=== PATIENT | female | born 1940 | race American Indian/Alaskan Native ===

== ENCOUNTER 2016-10-06 15:33 | Observation (INO) | payer OTHER ==
--- NOTE | 2016-10-06 16:26 | ED PDOC ---
Arrival/HPI - General Time Seen by Provider: 10/06/16 16:02 - History of Present Illness Narrative History of Present Illness (Text): 10/06/16 16:24 76 yo female, hx of htn, presents with high b/p and chest tightness. as per pt, noted her b/p to be elevated at home, and had "heaviness in her chest". states took her usual meds. reports systolic to be 180 at home. no fevers, no cough, no n/v/d, no urianry changes, Past Medical History - Provider Review Nursing Documentation Reviewed: Yes - Infectious Disease Hx of Infectious Diseases: None - Tetanus Immunization Tetanus Immunization: Unknown - Cardiac Hx Pacemaker: No - Pulmonary Other/Comment: SOB - Neurological Hx Paralysis: No - HEENT Hx HEENT Disorder: Yes Hx Cataracts: Yes (Both Eyes) - Endocrine/Metabolic Hx Diabetes Mellitus Type 2: Yes - Hematological/Oncological Hx Blood Transfusions: No Hx Blood Transfusion Reaction: No - Musculoskeletal/Rheumatological Hx Musculoskeletal Disorders: Yes - Gastrointestinal Hx Gastroesophageal Reflux: Yes Hx Gastrointestinal Ulcer: Yes - Genitourinary/Gynecological Hx Reproductive Disorders: No - Psychiatric Hx Emotional Abuse: No Hx Physical Abuse: No Hx Substance Use: No - Surgical History Hx Cardiac Catheterization: Yes Hx Coronary Stent: Yes Hx Open Heart Surgery: Yes - Anesthesia Hx Anesthesia Reactions: No Hx Malignant Hyperthermia: No - Suicidal Assessment Feels Threatened In Home Enviroment: No Family/Social History Family/Social History: Unknown Family HX Smoking Status: Never Smoked Hx Alcohol Use: No Hx Substance Use: No Hx Substance Use Treatment: No Allergies/Home Meds Allergies/Adverse Reactions: Allergies No Known Allergies Allergy (Verified 10/06/16 16:08) Home Medications: Home Meds Medication Instructions Recorded Confirmed Clonidine Hydrochloride [Clonidine 0.1 mg PO BID 09/23/11 02/05/15 HCl] Insulin Aspart, Recombinant 5 units SC ACL 09/23/11 02/05/15 [Novolog] Insulin Aspart, Recombinant 9 units SC ACD 09/23/11 02/05/15 [Novolog] Insulin Aspart, Recombinant 11 units SC ACB 09/23/11 02/05/15 [Novolog] Insulin Glargine,Hum.rec.anlog 30 units SC HS 09/23/11 02/05/15 [Lantus] Zolpidem Tartrate [Ambien] 5 mg PO HS PRN 06/05/12 10/19/15 Atorvastatin Calcium 40 mg PO HS 11/20/11 02/05/15 Amlodipine Besylate 10 mg PO DAILY 02/01/12 02/05/15 Aspirin [Ecotrin] 81 mg PO DAILY 02/01/12 02/05/15 Carvedilol [Coreg] 25 mg PO BID 02/01/12 02/05/15 Clopidogrel Hydrogen Sulfate 75 mg PO DAILY 02/01/12 02/05/15 [Plavix] cloNIDine 0.3 mg/24 hr 1 patch TD WM 02/01/12 02/05/15 [catapres-TTS3 0.3 mg/24 hr] Polyethylene Glycol 3350 17 gm PO DAILY 02/21/12 02/05/15 Pantoprazole Sodium [Protonix] 40 mg PO DAILY 03/25/12 02/05/15 Docusate [Colace] 100 mg PO TID 01/17/15 02/05/15 Fexofenadine HCl [Delmi NF] 180 mg PO DAILY 01/17/15 02/05/15 Furosemide [Lasix] 40 mg PO DAILY 01/17/15 02/05/15 Lisinopril 40 mg PO DAILY 01/17/15 02/05/15 Nitroglycerin 0.2 mg/hr [Nitro-Dur 1 patch TD DAILY 01/17/15 02/05/15 0.2 mg/hr Patch] hydrALAZINE [Apresoline] 50 mg PO TID 01/17/15 02/05/15 Review of Systems - Review of Systems Constitutional: Normal Eyes: Normal ENT: Normal Respiratory: Normal Cardiovascular: Chest Pain Gastrointestinal: Normal Genitourinary Female: Normal Musculoskeletal: Normal Skin: Normal Neurological: Normal Endocrine: Normal Hemo/Lymphatic: Normal Psychiatric: Normal Physical Exam Vital Signs Temp Pulse Resp BP Pulse Ox 10/06/16 22:00 87 16 164/73 H 99 10/06/16 20:27 88 16 165/79 H 98 10/06/16 18:06 94 H 17 182/74 H 98 10/06/16 15:34 97.9 F 91 H 18 184/89 H 96 Temperature: Afebrile Blood Pressure: Hypertensive Pulse: Regular Respiratory Rate: Normal Appearance: Positive for: Well-Appearing, Non-Toxic, Comfortable Pain Distress: None Mental Status: Positive for: Alert and Oriented X 3 - Systems Exam Head: Present: Atraumatic, Normocephalic Pupils: Present: PERRL Extroacular Muscles: Present: EOMI Conjunctiva: Present: Normal Mouth: Present: Moist Mucous Membranes Neck: Present: Normal Range of Motion Respiratory/Chest: Present: Clear to Auscultation, Good Air Exchange. No: Respiratory Distress, Accessory Muscle Use Cardiovascular: Present: Regular Rate and Rhythm, Normal S1, S2. No: Murmurs Abdomen: Present: Normal Bowel Sounds. No: Tenderness, Distention, Peritoneal Signs Back: Present: Normal Inspection Upper Extremity: Present: Normal Inspection. No: Cyanosis, Edema Lower Extremity: Present: Normal Inspection. No: Edema Neurological: Present: GCS=15, CN II-XII Intact, Speech Normal, Motor Func Grossly Intact, Normal Sensory Function, Normal Cerebellar Funct Skin: Present: Warm, Dry, Normal Color. No: Rashes Psychiatric: Present: Alert, Oriented x 3, Normal Insight, Normal Concentration Medical Decision Making ED Course and Treatment: 10/06/16 16:25 cp r/o acs , r/o hypertensive urgency vs emergency. labs imaging pending. - Lab Interpretations Lab Results: 10/06/16 17:00 10/06/16 17:00 Lab Results 10/06/16 17:00: Sodium 137, Potassium 5.0, Chloride 105, Carbon Dioxide 21, Anion Gap 16, BUN 34 H, Creatinine 2.0 H, Est GFR ( Amer) 29, Est GFR ( Non-Af Amer) 24, Random Glucose 142 H, Calcium 10.4, Magnesium 2.0, Total Bilirubin 0.5, AST 30, ALT 27, Alkaline Phosphatase 89, Lactate Dehydrogenase 421, Total Creatine Kinase 130, Troponin I 0.03, Total Protein 8.8 H, Albumin 4.5, Globulin 4.4, Albumin/Globulin Ratio 1.0 L 10/06/16 17:00: PT Cancelled, INR Cancelled, APTT Cancelled 10/06/16 17:00: WBC 8.5 D, RBC 4.27, Hgb 12.1, Hct 35.5 L, MCV 83.1, MCH 28.3, MCHC 34.1, RDW 14.3, Plt Count 165, MPV 10.4, Gran % 71.6 H, Lymph % (Auto) 17.4 L, [place] % (Auto) 7.4 H, Eos % (Auto) 3.2, Baso % (Auto) 0.4, Gran # 6.09, Lymph # 1.5, [place] # 0.6, Eos # 0.3, Baso # 0.03 10/06/16 14:33: Urine Color Yellow, Urine Appearance Clear, Urine pH 7.0, Ur Specific [place] 1.020, Urine Protein 100 H, Urine Glucose (UA) Negative, Urine Ketones Negative, Urine Blood Negative, Urine Nitrate Negative, Urine Bilirubin Negative, Urine Urobilinogen 0.2, Ur Leukocyte Esterase Negative, Urine RBC 0 - 2, Urine WBC 0 - 2, Ur Epithelial Cells 1 - 3, Urine Bacteria Small, Urine Other Mucus - RAD Interpretation Radiology Orders: 10/06/16 16:24 CHEST PORTABLE [RAD] Stat 10/06/16 16:26 HEAD W/O CONTRAST [CT] Stat - Medication Orders Current Medication Orders: Alprazolam (Xanax) 0.25 mg PO BID [facility] PRN Reason: Protocol Stop: 10/14/16 18:01 Last Admin: 10/08/16 09:08 Dose: 0.25 mg Amlodipine Besylate (Norvasc) 10 mg PO DAILY [facility] Last Admin: 10/08/16 09:08 Dose: 10 mg Aspirin (Ecotrin) 81 mg PO DAILY [facility] Last Admin: 10/08/16 09:08 Dose: 81 mg Atorvastatin Calcium (Lipitor) 40 mg PO DIN [facility] Last Admin: 10/07/16 18:53 Dose: 40 mg Carvedilol (Coreg) 25 mg PO BID [facility] Last Admin: 10/08/16 09:09 Dose: 25 mg Clonidine HCl (Catapres) 0.1 mg PO BID [facility] Last Admin: 10/08/16 09:09 Dose: 0.1 mg Clopidogrel Bisulfate (Plavix) 75 mg PO DAILY [facility] Last Admin: 10/08/16 09:08 Dose: 75 mg Hydralazine HCl (Apresoline) 10 mg PO QID PRN PRN Reason: for SBP>160 anddiastolic>100 Insulin Detemir (Levemir) 12.5 unit SC [facility] Last Admin: 10/08/16 08:14 Dose: 12.5 unit Insulin Human Regular (Humulin R Low) 0 units SC [facility] PRN Reason: Protocol Last Admin: 10/08/16 08:13 Dose: 1 units Lisinopril (Zestril) 30 mg PO DAILY [facility] Last Admin: 10/08/16 09:50 Dose: 30 mg Discontinued Medications Aspirin (Aspirin) 325 mg PO STAT STA Stop: 10/06/16 18:12 Last Admin: 10/06/16 19:07 Dose: 243 mg Comments: patient took 81 mg earlier today. Non-Formulary Medication (Amlodipine Besylate [Amlodipine Besylate]) 10 mg PO DAILY [facility] Non-Formulary Medication (Aspirin [Ecotrin]) 81 mg PO DAILY [facility] Last Admin: 10/08/16 09:10 Dose: Non-Formulary Medication (Atorvastatin Calcium [Atorvastatin Calcium]) 40 mg PO HS [facility] Non-Formulary Medication (Clopidogrel Hydrogen Sulfate [Plavix]) 75 mg PO DAILY [facility] Ondansetron HCl (Zofran Tab) 4 mg PO Q8H PRN PRN Reason: Nausea/Vomiting Disposition/Present on Arrival - Present on Arrival Any Indicators Present on Arrival: No History of DVT/PE: No History of Uncontrolled Diabetes: Yes Urinary Catheter: No History Surgical Site Infection Following: None - Disposition Have Diagnosis and Disposition been Completed?: Yes Diagnosis: Chest pain Disposition: HOSPITALIZED Disposition Time: 05:00 Condition: STABLE
[2016-10-06 16:43] LABS: URINE BILIRUBIN NEGATIVE (NEGATIVE); URINE BLOOD NEGATIVE (NEGATIVE); URINE GLUCOSE (UA) NEGATIVE (NEGATIVE); URINE KETONE NEGATIVE (NEGATIVE); URINE LEUKOCYTE ESTERASE NEGATIVE Leu/uL (NEGATIVE); URINE PROTEIN 100 mg/dL (<30 mg/dL); URINE UROBILINOGEN 0.2 E.U./dL (<1 E.U./dL)
[2016-10-06 16:50] LABS: URINE APPEARANCE CLEAR (CLEAR); URINE COLOR YELLOW (YELLOW)
[2016-10-06 17:00] LABS: URINE BACTERIA SMALL (NEG); URINE RBC 0 - 2 /hpf (0-2); URINE WBC 0 - 2 /hpf (0-6)
[2016-10-06 17:25] LABS: ADD MANUAL DIFF? NO
[2016-10-06 17:48] LABS: BASO # 0.03 K/mm3 (0.0-2.0); BASO % 0.4 % (0.0-3.0); EOS # 0.3 (0.0-0.7); EOS % 3.2 % (1.5-5.0); GRAN # 6.09 (1.4-6.5); GRAN % 71.6 % (50.0-68.0); HEMATOCRIT 35.5 % (36.0-48.0); LYMPH # 1.5 (1.2-3.4); LYMPH % 17.4 % (22.0-35.0); MEAN CELL VOLUME 83.1 fL (80.0-105.0); MEAN CORPUSCULAR HEMOGLOBIN 28.3 pg (25.0-35.0); MEAN CORPUSCULAR HGB CONC 34.1 g/dl (31.0-37.0); MEAN PLATELET VOLUME 10.4 fl (7.0-11.0); MONO # 0.6 (0.1-0.6); MONO % 7.4 % (1.0-6.0); PLATELET COUNT 165 10^3/uL (120.0-450.0); RED CELL DISTRIBUTION WIDTH 14.3 % (11.5-14.5); WHITE BLOOD COUNT 8.5 10^3/ul (4.5-11.0)
[2016-10-06 17:56] LABS: BILIRUBIN,TOTAL 0.5 mg/dL (0.2-1.3); CALCIUM 10.4 mg/dL (8.4-10.5); TOTAL PROTEIN 8.8 g/dL (5.8-8.3)
--- NOTE | 2016-10-06 18:02 | CT ---
PROCEDURE: CT HEAD WITHOUT CONTRAST. HISTORY: rizzo COMPARISON: Noncontrast head CT performed 05/26/12 TECHNIQUE: Axial computed tomography images were obtained through the head/brain without intravenous contrast. Radiation dose: Total exam DLP = 774.23 mGy-cm. This CT exam was performed using one or more of the following dose reduction techniques: Automated exposure control, adjustment of the mA and/or kV according to patient size, and/or use of iterative reconstruction technique. FINDINGS: Streak artifact obscures evaluation of the skullbase. HEMORRHAGE: No intracranial hemorrhage. BRAIN: Diffuse atrophy with prominence of the ventricles and sulci noted. No mass effect or edema. Intracranial atherosclerotic calcifications. Moderate scattered periventricular and subcortical white matter hypodensities, which are nonspecific, but often seen with chronic microvascular ischemic disease. Please note that MRI with diffusion imaging is more sensitive in the detection of acute ischemic event. VENTRICLES: No hydrocephalus. CALVARIUM: Unremarkable. PARANASAL SINUSES: Unremarkable as visualized. No significant inflammatory changes. MASTOID AIR CELLS: Unremarkable as visualized. No inflammatory changes. OTHER FINDINGS: None. IMPRESSION: Generalized atrophy. Moderate nonspecific white matter changes.
[2016-10-06 18:06] LABS: TROPONIN I 0.03 ng/mL
[2016-10-06 21:10] LABS: INR 1.07 (0.93-1.08); PARTIAL THROMBOPLASTIN TIME 23.4 Seconds (23.7-30.8)
[2016-10-06 23:25] VITALS: BMI 27.3
--- NOTE | 2016-10-07 08:07 | RAD ---
HISTORY: weakness COMPARISON: Comparison chest dated 07/06/2012 FINDINGS: LUNGS: Hyperinflation; rule out chronic changes of COPD. No acute infiltrates PLEURA: No significant pleural effusion identified, no pneumothorax apparent.. CARDIOVASCULAR: Sternotomy wires and CABG clips. Heart size is within range of normal. OSSEOUS STRUCTURES: No significant abnormalities. VISUALIZED UPPER ABDOMEN: Normal. OTHER FINDINGS: None. IMPRESSION: Hyperinflation. Rule out chronic changes of COPD. No infiltrates seen. 1st
[2016-10-07] MEDS: ASPIRIN 81 MG PO SCH (09:30)
[2016-10-07] MEDS ORDERED: Non Formulary Medication (Amlodipine Besylate [Amlodipine Besylate] 10 MG) PO SCH (10:00)
[2016-10-07] MEDS ORDERED: [UNRECOGNIZED DRUG - OTHER] PO SCH (10:00)
[2016-10-07] MEDS: Insulin Reg-LOW-Coverage SC SCH ×4 (12:00→22:43)
--- NOTE | 2016-10-07 14:56 | CON ---
DATE: 10/07/2016 SERVICE: Cardiology. REASON FOR CONSULTATION: Uncontrolled hypertension, coronary artery disease, peripheral arterial dis ease, solitary kidney, renal insufficiency. 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 The patient says the blood pressur e was 220. Later on, the patient's blood pressure came to 180. Feels some headache. Denies any [place] pain, denies any shortness of breath, denies any palpitation. 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 SOCIAL HISTORY: Denies smoking. Denies any history of alcohol abuse. Most recent cardiac workup as follows: The patient had a cardiac catheterization done after having a bnormal stress test on 01/17/2015. The patient had a stress test that revealed probably a SPECT abno rmal myocardial perfusion study, reversible anterior defect suspicious for ischemia, ejection fractio n 74%. So patient subsequently had a cardiac catheterization done on 02/05/2015, as the patient had a single vessel CABG, SVG to RCA with high grade stenosis in the RCA and anomalous origin of right co ronary artery that shows left ventricle is normal in size, single vessel ____ anomalous origin of RCA , status post SVG to RCA, patent SVG to RCA, preserved LV ejection fraction 65%, EDP was in the range of 18. The patient has only 1 kidney and has some renal insufficiency, is status post PTCA of right SFA and right SFA patent stent on that catheterization dated 02/05/2015. Date of catheterization . History of solitary kidney, status post nephrectomy, baseline creatinine around 1.9 on the previous blood workup 07/16/2016 and ____, creatinine was 2 also. So today, creatinine is 2 , so not changed over a period of 1 year. CURRENT MEDICATIONS: The patient at home was taking hydralazine, clonidine 0.3 mg 24 hours, tramadol , MiraLax, nitroglycerin, lisinopril 40, insulin, Lasix 40, Plavix 75 mg daily, Coreg 25 mg daily, as pirin, atorvastatin. REVIEW OF SYSTEMS: As per HPI. PHYSICAL EXAMINATION: VITAL SIGNS: Temperature afebrile, heart rate 77, blood pressure 137/58. HEENT: PERRLA. Extraocular muscles intact. NECK: Supple. No carotid bruits. No thyromegaly. CHEST: Clear to auscultation. HEART: S1, S2 regular. ABDOMEN: Soft. EXTREMITIES: Clubbing and cyanosis negative. BLOOD WORKUP: As follows: WBC 8.5, hemoglobin ____ , hematocrit 35.5, platelet count 165. Chemistr y shows sodium ____, potassium 5, chloride 105, carbon dioxide 21, anion gap of 16, BUN 34, creatinin e 2. IMPRESSION: Chronic renal insufficiency, baseline creatinine 2 since 09/2015, uncontrolled hypertens ion, solitary kidney, status post left nephrectomy secondary to tumor, status post stent in the right renal artery, history of peripheral arterial disease, status post percutaneous transluminal coronary angioplasty of right coronary artery, status post cardiac catheterization 2014, patent stent in righ t kidney, patent stent in right superficial femoral artery and percutaneous transluminal coronary ang ioplasty and patent saphenous graft to the right coronary artery, catheterization dated 02/05/2015. Recent ankle-brachial index is abnormal, but did not proceed for cardiac catheterization because of r enal insufficiency. This is asymptomatic. Started on cilostazol. Diabetes, hypertension, hyperlipi demia. RECOMMENDATION: Monitor renal function closely. Start Coreg, amlodipine, atorvastatin, aspirin, Balbina vix and hydralazine p.r.n. If the blood pressure remains elevated, we will resume her clonidine as w ell as her lisinopril which is now on hold because the patient is 130. We will follow with you. Thank you, Dr. Rivera, for providing the opportunity in taking care of this patient. Will follow with you. So far, no evidence of acute AK or acute coronary syndrome. Denies any chest pain. Will repe at the lab in the morning. We will follow with you. Thank you, Dr. Rivera, for providing the opportunity in taking care of this patient. Mauro Connell MD cc: [id number] TT: 10/07/2016 14:55:18 Confirmation # [id number] Dictation # [id number] rn
--- NOTE | 2016-10-07 17:43 | CARD ---
APPROVED REPORT EKG Measurement Heart [id number] <Conclusion> Sinus rhythm with premature supraventricular complexes Nonspecific T wave abnormality Abnormal ECG
--- NOTE | 2016-10-07 19:01 | HP ---
HISTORY OF PRESENT ILLNESS: The patient is a 76-year-old female admitted to the telemetry unit [facility] the Emergency Department on 10/06/2016 with elevated blood pressure and precordial chest heaviness, which was nonradiating. There was no nausea, no vomiting, no diaphoresis, no cough, no fever or chi lls. No hemoptysis. PAST MEDICAL HISTORY: Includes coronary artery disease, status post coronary artery bypass in 2005. The patient had an abnormal stress test with subsequent cardiac catheterization on 02/05/[address] Connell. The patient also has a history of type 2 diabetes mellitus, hypertension, chronic kidney dise ase, congestive heart failure, hypothyroidism, degenerative joint disease. PAST SURGICAL HISTORY: The patient has peripheral vascular disease, status post angioplasty of the l eft superficial femoral artery in the remote past. She is also status post left nephrectomy for karol l abscess in the remote past. The patient also has a history of colitis, which has been asymptomatic for the past few years. CURRENT MEDICATIONS: Include Xanax 0.25 mg twice daily, tramadol 50 mg twice daily, carvedilol 25 mg twice daily, Lipitor 40 mg daily, amlodipine 10 mg daily, clonidine 0.1 mg twice daily, Plavix 75 mg daily, Lasix 20 mg daily, hydralazine 50 mg daily and Protonix 40 mg daily. ALLERGIES: The patient has no known drug allergies. SOCIAL HISTORY: The patient has no history of tobacco or alcohol use. She is independent with ADLs and IADLs and lives alone. REVIEW OF SYSTEMS: Essentially negative other than above. PHYSICAL EXAMINATION: GENERAL: The patient is a well-developed female in no acute distress. VITAL SIGNS: Blood pressure 152/76, pulse 80, temperature 97.6, respiratory rate 20. HEENT: Head is normocephalic, atraumatic. Pupils equal, round and reactive to light. Extraocular m ovements intact. There is mild sensorineural hearing loss bilaterally. NECK: Supple, no thyromegaly, no carotid bruit, no adenopathy. LUNGS: Clear. HEART: Regular rate and rhythm, grade II/ systolic murmur. No JVD. There is a healed sternal sca r. ABDOMEN: Soft, nontender, bowel sounds are normoactive. EXTREMITIES: Without cyanosis, clubbing, or edema. NEUROLOGIC: The patient is awake and oriented x 3 without focal sensory or motor deficits. SKIN: Warm and dry. LABORATORY DATA: WBC is 8.5, hemoglobin 12.1, hematocrit 35.5. Sodium 137, potassium 5.0, chloride 105, CO2 of 21, BUN 34, creatinine 2.0. Glucose 142. Troponin is 0.03 and 0.02. Chest x-ray shows no active disease. CT scan of the head was negative for any acute bleeds, infarcts or masses. IMPRESSION: 1. Uncontrolled hypertension. 2. Coronary artery disease, status post coronary artery bypass graft. 3. Type 2 diabetes mellitus. 4. Chronic kidney disease. 5. Congestive heart failure. 6. Degenerative joint disease. 7. Hypothyroidism. 8. Peripheral vascular disease. 9. Status post left nephrectomy. PLAN: The patient is admitted to the telemetry unit. Cardiology consultation by Dr. Connell is appreci ated. Await decision regarding further management versus discharge to home. Mahamed Rivera JD, MD cc: [phone] TT: 10/07/2016 19:01:03 rn
[2016-10-07] MEDS ORDERED: ATORVASTATIN CALCIUM 40 MG PO SCH (22:00)
[2016-10-07] MEDS: Insulin Detemir 100 units/ml Vial (Levemir) SC SCH (22:45)
[2016-10-08 07:16] LABS: ADD MANUAL DIFF? NO
[2016-10-08 07:20] LABS: BASO # 0.02 K/mm3 (0.0-2.0); BASO % 0.4 % (0.0-3.0); EOS # 0.2 (0.0-0.7); EOS % 3.6 % (1.5-5.0); GRAN # 2.57 (1.4-6.5); GRAN % 51.8 % (50.0-68.0); HEMATOCRIT 35.1 % (36.0-48.0); LYMPH # 1.6 (1.2-3.4); LYMPH % 33.1 % (22.0-35.0); MEAN CELL VOLUME 83.6 fL (80.0-105.0); MEAN CORPUSCULAR HEMOGLOBIN 27.9 pg (25.0-35.0); MEAN CORPUSCULAR HGB CONC 33.3 g/dl (31.0-37.0); MEAN PLATELET VOLUME 10.2 fl (7.0-11.0); MONO # 0.6 (0.1-0.6); MONO % 11.1 % (1.0-6.0); PLATELET COUNT 153 10^3/uL (120.0-450.0); RED CELL DISTRIBUTION WIDTH 14.2 % (11.5-14.5)
[2016-10-08 07:33] LABS: CALCIUM 9.7 mg/dL (8.4-10.5); PHOSPHOROUS 3.3 mg/dL (2.5-4.5); POTASSIUM 4.5 mmol/L (3.6-5.0)
[2016-10-08] MEDS: Insulin Reg-LOW-Coverage SC SCH ×4 (08:13→21:32)
[2016-10-08] MEDS: Insulin Detemir 100 units/ml Vial (Levemir) SC SCH ×2 (08:14→21:35)
[2016-10-08] MEDS: ASPIRIN 81 MG PO SCH (09:10)
--- NOTE | 2016-10-08 14:03 | PN ---
DATE: 10/08/2016 SUBJECTIVE: The patient is lying in bed, in no acute distress. She denies chest pain or shortness o f breath. OBJECTIVE: VITAL SIGNS: Blood pressure 185/89, pulse 89, respiratory rate 19, temperature 97.9. LUNGS: Clear. HEART: Regular rate and rhythm. ABDOMEN: Soft, nontender, bowel sounds are normoactive. EXTREMITIES: Without cyanosis, clubbing, or edema. NEUROLOGIC: The patient is awake and oriented x 3 without focal, sensory or motor deficits. IMPRESSION: 1. Uncontrolled hypertension. 2. Coronary artery disease, status post coronary artery bypass graft. 3. Type 2 diabetes mellitus. 4. Chronic kidney disease. 5. Congestive heart failure. 6. Degenerative joint disease. LABORATORY DATA: WBCs 5.0, hemoglobin 11.7, hematocrit 35.1. Sodium 136, potassium 4.5, chloride 10 6, CO2 20, BUN 32, creatinine 1.5, glucose 190. PLAN: Will start lisinopril 30 mg daily. Continue monitoring patient on telemetry. Cardiology foll owup with Dr. Pepper/Dr. Connell. Social work for discharge planning. Mahamed Rivera JD, MD cc: [id number] TT: 10/08/2016 14:02:42 Confirmation # [id number] Dictation # [id number]
--- NOTE | 2016-10-08 17:26 | CARD ---
APPROVED REPORT EXAM: Two-dimensional and M-mode echocardiogram with Doppler and color Doppler. INDICATION Hypertension/HCVD 2D DIMENSIONS Left Atrium (2D)3.8 (1.6-4.0cm)IVSd1.1 (0.7-1.1cm) LVDd3.8 (3.9-5.9cm)PWd1.1 (0.7-1.1cm) LVDs2.5 (2.5-4.0cm)FS (%) 35.6 % LVEF (%)65.9 (>50%) M-Mode DIMENSIONS Aortic Root3.30 (2.2-3.7cm)Aortic Cusp Exc.1.40 (1.5-2.0cm) Aortic Valve AoV Peak Qtheybyi309.0cm/Kira Peak GR.6mmHg Mitral Valve MV E Fpmlvrqc56.3cm/sMV A Porhahgg12.9cm/sE/A ratio1.1 TDI E/Lateral E'0.0E/Medial E'0.0 Tricuspid Valve TR Peak [id number]/sRAP [id number] Peak Gr.39mmHg [id number] LEFT VENTRICLE The left ventricle is normal size. There is borderline concentric left ventricular hypertrophy. The left ventricular function is normal.EF-65% There is mild hypokinesis in the mid-inferolateral wall. Transmitral Doppler flow pattern is Grade II-pseudonormal filling dynamics. No left ventricle thrombus noted on this study. There is no ventricular septal defect visualized. There is no left ventricular aneurysm. There is no mass noted in the left ventricle. RIGHT VENTRICLE The right ventricle is normal size. There is normal right ventricular wall thickness. The right ventricular systolic function is normal. ATRIA The left atrium is borderline dilated, in Long axis The right atrium is borderline dilated, in long axis The interatrial septum is intact with no evidence for an atrial septal defect. AORTIC VALVE The aortic valve is moderately thickened. There is trace aortic regurgitation. There is no aortic valvular stenosis. There is no aortic valvular vegetation. MITRAL VALVE The mitral valve is thickened but opens well. Mitral regurgitation is mild to moderate. There is no mitral valve stenosis. There is no evidence of mitral valve prolapse. TRICUSPID VALVE The tricuspid valve leaflets are thickened , but open well. There is mild to moderate tricuspid regurgitation.RVSP-49 mmof Hg. There is no tricuspid valve stenosis. There is no tricuspid valve prolapse or vegetation. PULMONIC VALVE The pulmonary valve is normal in structure. There is no pulmonic valvular regurgitation. GREAT VESSELS The aortic root is normal in size. The ascending aorta is normal in size. The pulmonary artery is normal. The IVC is normal in size and collapses >50% with inspiration. PERICARDIAL EFFUSION There is no pleural effusion. There is a trace pericardial effusion. <Conclusion> The left ventricle is normal size. There is borderline concentric left ventricular hypertrophy. The left ventricular function is normal.EF-65% There is trace aortic regurgitation. Mitral regurgitation is mild to moderate. There is mild to moderate tricuspid regurgitation.RVSP-49 mmof Hg. There is a trace pericardial effusion. The IVC is normal in size and collapses >50% with inspiration.
[2016-10-09 05:23] VITALS: O2SAT 97
[2016-10-09 07:31] LABS: CALCIUM 9.7 mg/dL (8.4-10.5); POTASSIUM 4.5 mmol/L (3.6-5.0)
[2016-10-09] MEDS: Insulin Reg-LOW-Coverage SC SCH ×2 (08:07→12:17)
--- NOTE | 2016-10-09 08:24 | PN ---
DATE: 10/08/2016 REASON FOR CONSULTATION AND FOLLOWUP: Uncontrolled hypertension, coronary artery disease, peripheral arterial disease, solitary kidney, renal insufficiency. 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 Came in with uncontrolled hypertension, blood pressure at 220 at home systolic . The patient's baseline is some renal insufficiency. Yesterday, the blood pressure dipped down to 123, so lisinopril was held, ____ Coreg was added as well as clonidine. Today's pressure is 185. So again lisinopril is started. The patient remains stable. Denies any chest pain, shortness of breat h, any pain. Family is at the bedside. PHYSICAL EXAMINATION: VITAL SIGNS: Temperature afebrile, heart rate 68, blood pressure 123/58. HEENT: PERRLA. Extraocular muscles intact. NECK: Supple. No carotid bruits. No thyromegaly. CHEST: Clear to auscultation. HEART: S1, S2 regular. ABDOMEN: Soft. EXTREMITIES: Clubbing and cyanosis negative. BLOOD WORKUP: As follows: WBC 5.____, hemoglobin 11.____, hematocrit 35.1, platelet count 153. Kadie josemanuel shows sodium ____, potassium 4.5, chloride 106, carbon dioxide 20, anion gap of 15, BUN 32, cr eatinine 1.5. IMPRESSION: Chronic kidney disease, solitary kidney, status post left nephrectomy; diabetes, hyperte nsion, hyperlipidemia, uncontrolled hypertension, coronary artery disease, anomalous origin of right coronary artery, status post saphenous vein graft to right coronary artery; peripheral arterial disea se. RECOMMENDATION: Aggressive control of blood pressure. Started amlodipine. Continue lisinopril. Mo nitor kidney function tomorrow. If remains stable, will discontinue telemetry tomorrow. Thank you, Dr. Rivera, for providing this opportunity in taking care of the patient. Will repeat SMA- 7 in the morning to monitor the renal function. The patient's last echo 2 years ago. Repeat echo to assess LV function. Will follow with you. Mauro Connell MD cc:Mahamed Rivera JD, MD [id number] TT: 10/08/2016 15:49:29 Confirmation # [id number] Dictation # [id number] mn
[2016-10-09] MEDS: Insulin Detemir 100 units/ml Vial (Levemir) SC SCH (08:39)
--- NOTE | 2016-10-09 10:36 | DS ---
HOSPITAL COURSE: The patient is a 76-year-old female admitted through the Emergency Department on with chest pain and elevated blood pressure. The patient's serial troponins and cardiograms are negative for acute coronary syndrome and the patient is medically stable for discharge to home t lizette. She denies chest pain or shortness breath. She has been seen in consultation by Dr. Pepper/Dr Pawan Connell and telemetry has been discontinued. PHYSICAL EXAMINATION: VITAL SIGNS: Blood pressure 174/58, pulse 74, temperature 98.4, respiratory rate 19. LUNGS: Clear. HEART: Regular rate and rhythm. ABDOMEN: Soft, nontender, bowel sounds are normoactive. EXTREMITIES: Without cyanosis, clubbing, or edema. NEUROLOGIC: The patient is awake and oriented x 3 without focal sensory or motor deficits. SKIN: Warm and dry. LABORATORY DATA: Sodium 136, potassium 4.5, chloride 106, CO2 of 20, BUN 34, creatinine 1.4, glucose 117. IMPRESSION: 1. Uncontrolled hypertension. 2. Coronary artery disease status post coronary artery bypass graft. 3. Type 2 diabetes mellitus. 4. Chronic kidney disease. 5. Congestive heart failure. 6. Degenerative joint disease. 7. Hypothyroidism. 8. Peripheral vascular disease. 9. Status post nephrectomy. PLAN: The patient will be discharged to home on the following medications: Xanax 0.25 mg twice gregor y, tramadol 50 mg twice daily, carvedilol 25 mg twice daily, Lipitor 40 mg daily, amlodipine 10 mg da stephanie, clonidine 0.1 mg twice daily, Plavix 75 mg daily, Lasix 20 mg daily, hydralazine 50 mg daily and Protonix 40 mg daily. The patient will be maintained on a heart-healthy diet, activities ad libitum . She will be followed up in the office in the next 1-2 weeks. Mahamed Rivera JD, MD cc: [id number] TT: 10/09/2016 10:35:18 wagner
[2016-10-09 12:16] VITALS: PULSE 78; RESP 20; TEMP 97.8
[2016-10-09 12:17] VITALS: BP 129/65
--- NOTE | 2016-10-10 10:11 | PN ---
DATE: 10/09/2016 REASON FOR CONSULTATION AND FOLLOWUP: Uncontrolled hypertension, coronary artery disease, peripheral arterial disease, solitary kidney and renal insufficiency. BRIEF CLINICAL HISTORY: This is a 76-year-old female with past medical history significant for anoma lous ____ of RCA, status post CABG, admitted with uncontrolled hypertension. PHYSICAL EXAMINATION: VITAL SIGNS: Temperature afebrile, heart rate 78, blood pressure 129/65. HEENT: PERRLA. Extraocular muscles intact. NECK: Supple. No carotid bruits. No thyromegaly. CHEST: Clear to auscultation. HEART: S1, S2 regular. ABDOMEN: Soft. EXTREMITIES: Clubbing and cyanosis negative. BLOOD WORKUP: As follows: WBC 5.0, hemoglobin 11.7, hematocrit 35.1, platelet count 153. Chemistry shows sodium ____, potassium 4.5, chloride 106, carbon dioxide 20, anion gap of 15, BUN 34, creatini ne 1.4. 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 The patient had echocardiography done yesterday that shows ejection fraction 65%, trace aortic regurgitation, mild to moderate mitral regurgitation, mild to moderate tricuspid regurgitation, right ventricular systolic pressure of 49. RECOMMENDATION: Continue aggressive control of blood pressure. Continue Coreg 25 mg daily, hydralaz ine p.r.n., ____, clonidine, atorvastatin. Continue amlodipine, continue lisinopril, continue clopid ogrel. The patient is stable; possibly will be discharged today if remains stable. We will disconti nue telemetry. Thank you, Dr. Rivera, for providing the opportunity in taking care of the patient. Mauro Connell MD cc: [id number] TT: 10/09/2016 14:38:02 Confirmation # [id number] Dictation # [id number] mn
== END 2016-10-09 14:14 | disposition home or self-care (01) ==
LOC: ED 15:33 → ERH 18:23 → 2RNO 22:10
PROVIDERS: ADMIT Internal Medicine; ATTEND Internal Medicine
DX: I13.0 Hypertensive heart and chronic kidney disease with heart failure and stage 1 through stage 4 chronic kidney disease, or unspecified chronic kidney disease (principal); I50.9 Heart failure, unspecified; N18.9 Chronic kidney disease, unspecified; E11.22 Type 2 diabetes mellitus with diabetic chronic kidney disease; M19.90 Unspecified osteoarthritis, unspecified site; E03.9 Hypothyroidism, unspecified; I73.9 Peripheral vascular disease, unspecified; Z90.5 Acquired absence of kidney; E78.5 Hyperlipidemia, unspecified; I25.10 Atherosclerotic heart disease of native coronary artery without angina pectoris; I70.1 Atherosclerosis of renal artery; K21.9 Gastro-esophageal reflux disease without esophagitis; Z79.82 Long term (current) use of aspirin; Z79.899 Other long term (current) drug therapy; Z87.11 Personal history of peptic ulcer disease; Z95.1 Presence of aortocoronary bypass graft; Z95.5 Presence of coronary angioplasty implant and graft; H26.9 Unspecified cataract; R40.2412 Glasgow coma scale score 13-15, at arrival to emergency department; Z87.19 Personal history of other diseases of the digestive system; I08.3 Combined rheumatic disorders of mitral, aortic and tricuspid valves

== ENCOUNTER 2018-05-21 16:43 | Emergency (ER) | payer MEDICAID, OTHER ==
[2018-05-21 17:05] VITALS: BMI 30.7
[2018-05-21 17:12] VITALS: RESP 18
--- NOTE | 2018-05-21 17:13 | ED PDOC ---
Arrival/HPI - General Chief Complaint: High Blood Pressure Time Seen by Provider: 05/21/18 16:57 Historian: Patient - History of Present Illness Narrative History of Present Illness (Text): 05/21/18 17:10 77-year-old female with past medical history of DM, HTN, chronic kidney disease, solitary kidney, status post left nephrectomy, reports high bp, which started this morning and since has been going up. States that initially this AM, her BP was 150/90, then during the mid day was 173/90. States that she is compliant with all of her bp mediations and took all of her bp medication this AM. Otherwise: (-) CP, (-) headache, (-) diaphoresis, (-) dyspnea, (-) palpitations, (-) ripping or tearing quality, (-) back pain, (-) abdominal pain, (-) dizziness, (-) syncope, (-) nausea, (-) vomiting, (-) calf swelling/pain, (-) neuro deficits. PMD [facility] Past Medical History - Infectious Disease Hx of Infectious Diseases: None - Tetanus Immunization Tetanus Immunization: Unknown - Cardiac Hx Pacemaker: No - Pulmonary Other/Comment: SOB - Neurological Hx Paralysis: No - HEENT Hx HEENT Disorder: Yes Hx Cataracts: Yes (Both Eyes) - Endocrine/Metabolic Hx Diabetes Mellitus Type 2: Yes - Hematological/Oncological Hx Blood Transfusions: No Hx Blood Transfusion Reaction: No - Musculoskeletal/Rheumatological Hx Musculoskeletal Disorders: Yes - Gastrointestinal Hx Gastroesophageal Reflux: Yes Hx Gastrointestinal Ulcer: Yes - Genitourinary/Gynecological Hx Reproductive Disorders: No - Psychiatric Hx Emotional Abuse: No Hx Physical Abuse: No Hx Substance Use: No - Surgical History Hx Cardiac Catheterization: Yes Hx Coronary Stent: Yes Hx Open Heart Surgery: Yes - Anesthesia Hx Anesthesia Reactions: No Hx Malignant Hyperthermia: No - Suicidal Assessment Feels Threatened In Home Enviroment: No Family/Social History Family/Social History: Unknown Family HX Smoking Status: Never Smoked Hx Alcohol Use: No Hx Substance Use: No Hx Substance Use Treatment: No Allergies/Home Meds Allergies/Adverse Reactions: Allergies No Known Allergies Allergy (Verified 05/21/18 17:05) Home Medications: Home Meds Medication Instructions Recorded Confirmed RX: Clonidine Hydrochloride 0.1 mg PO BID 09/23/11 02/05/15 [Clonidine HCl] RX: Insulin Aspart, Recombinant 5 units SC ACL 09/23/11 02/05/15 [Novolog] RX: Insulin Aspart, Recombinant 9 units SC ACD 09/23/11 02/05/15 [Novolog] RX: Insulin Aspart, Recombinant 11 units SC ACB 09/23/11 02/05/15 [Novolog] RX: Insulin Glargine,Hum.rec.anlog 30 units SC HS 09/23/11 02/05/15 [Lantus] RX: Zolpidem Tartrate [Ambien] 5 mg PO HS PRN 09/23/11 02/05/15 RX: Atorvastatin Calcium 40 mg PO HS 11/20/11 02/05/15 RX: Amlodipine Besylate 10 mg PO DAILY 02/01/12 02/05/15 RX: Aspirin [Ecotrin] 81 mg PO DAILY 02/01/12 02/05/15 RX: Clopidogrel Hydrogen Sulfate 75 mg PO DAILY 02/01/12 02/05/15 [Plavix] RX: cloNIDine 0.3 mg/24 hr 1 patch TD WM 02/01/12 02/05/15 [catapres-TTS3 0.3 mg/24 hr] RX: Polyethylene Glycol 3350 17 gm PO DAILY 02/21/12 02/05/15 RX: Pantoprazole Sodium [Protonix] 40 mg PO DAILY 03/25/12 02/05/15 RX: Docusate [Colace] 100 mg PO TID 01/17/15 02/05/15 RX: Fexofenadine HCl [Delmi 180 mg PO DAILY 01/17/15 02/05/15 NF] RX: Furosemide [Lasix] 40 mg PO DAILY 01/17/15 02/05/15 RX: Lisinopril 40 mg PO DAILY 01/17/15 02/05/15 RX: Nitroglycerin 0.2 mg/hr 1 patch TD DAILY 01/17/15 02/05/15 [Nitro-Dur 0.2 mg/hr Patch] RX: hydrALAZINE [Apresoline] 50 mg PO TID 01/17/15 02/05/15 Review of Systems - Review of Systems Constitutional: absent: Fatigue, Fevers Respiratory: absent: SOB, Cough Cardiovascular: absent: Chest Pain, Palpitations Gastrointestinal: absent: Abdominal Pain, Nausea, Vomiting Genitourinary Female: absent: Dysuria, Frequency Musculoskeletal: Arthralgias. absent: Back Pain, Neck Pain Skin: absent: Rash, Pruritis, Skin Lesions Neurological: absent: Headache, Dizziness Physical Exam Temperature: Afebrile Blood Pressure: Hypertensive Pulse: Regular Respiratory Rate: Normal Appearance: Positive for: Well-Appearing, Non-Toxic, Comfortable Pain Distress: None Mental Status: Positive for: Alert and Oriented X 3 - Systems Exam Head: Present: Atraumatic, Normocephalic Pupils: Present: PERRL Extroacular Muscles: Present: EOMI Conjunctiva: Present: Normal Mouth: Present: Moist Mucous Membranes Neck: Present: Normal Range of Motion Respiratory/Chest: Present: Clear to Auscultation, Good Air Exchange. No: Respiratory Distress, Accessory Muscle Use Cardiovascular: Present: Regular Rate and Rhythm, Normal S1, S2. No: Murmurs Abdomen: No: Tenderness, Distention, Peritoneal Signs Back: Present: Normal Inspection Upper Extremity: Present: Normal Inspection. No: Cyanosis, Edema Lower Extremity: Present: Normal Inspection. No: Edema Neurological: Present: GCS=15, CN II-XII Intact, Speech Normal, Motor Func Grossly Intact, Normal Sensory Function Skin: Present: Warm, Dry, Normal Color. No: Rashes Psychiatric: Present: Alert, Oriented x 3, Normal Insight, Normal Concentration Medical Decision Making ED Course and Treatment: 05/21/18 17:08 Plan: -- Labs -- IV -- Urinalysis -- EKG -- CXR -- Clonidine 0.1 mg PO -- Reassess and disposition 05/21/18 17:56 EKG: NSR at 80 bpm, (-) acute ST changes, as read by PA. CXR : NAD, as read by PA. Case d/w Dr. Connell, states if BP does not improve in the ER then he agrees with observation, if bp imprves to advise the patient to take an extra dose of her clonidine. Labs reviewed : K 5.4, bun 40 / creat 2.0 (steady compared to her prior labs), trop (-). Given kayexalate po. On reevaluation, patient reports improvement of symptoms, denies any headache, dizziness, SOB or CP. On exam, patient remains awake alert and oriented 3 in no acute distress. BP 162/67. Advised to follow up with primary care physician and with Dr. Connell in 1-2 days without fail. Return to the emergency room at any time for any new or worsening symptoms. Patient states she fully agrees with and understands discharge instructions. States that she agrees with the plan and disposition. Verbalized and repeated discharge instructions and plan. I have given the patient opportunity to ask any additional questions. - RAD Interpretation Radiology Orders: 05/21/18 17:06 CHEST PORTABLE [RAD] Stat - Medication Orders Current Medication Orders: Clonidine HCl (Catapres) 0.2 mg PO STAT STA Stop: 05/21/18 17:07 - PA / UTILITIES ESTIMATOR AND DRAFTER / Resident Statement MD/DO has reviewed & agrees with the documentation as recorded. Disposition/Present on Arrival - Present on Arrival Any Indicators Present on Arrival: Yes History of DVT/PE: No History of Uncontrolled Diabetes: Yes Urinary Catheter: No History of Decub. Ulcer: No History Surgical Site Infection Following: None - Disposition Have Diagnosis and Disposition been Completed?: Yes Diagnosis: Hypertension Disposition: HOME/ ROUTINE Disposition Time: 19:30 Patient Plan: Discharge Condition: STABLE Discharge Instructions (ExitCare): High Blood Pressure in Adults, DASH Diet Additional Instructions: Thank you for letting us take care of you today. You were treated for hypertension. The emergency medical care you received today was directed at your acute symptoms. Take an extra dose of your clonidine if your BP is elevated. Return to the Emergency Department if your symptoms worsen, do not improve, or if you have any other problems. Please contact your doctor and your urology physician assistant in 2 days for re-evaluation and follow up. Bring any paperwork you were given at discharge with you along with any medications you are taking to your follow up visit. Our treatment cannot replace ongoing medical care by a primary care provider (PCP) outside of the emergency department. Thank you for allowing the [facility] team to be part of your care today. If you had an X-Ray : A Radiologist will review the ED reading if any change in treatment is needed we will contact you. Referrals: Mahamed Rivera JD, MD [Primary Care Provider] - Follow up with primary Forms: [employer] (Mauritanian)
[2018-05-21 17:15] VITALS: TEMP 98.1
--- NOTE | 2018-05-21 17:35 | RAD ---
Date of service: 05/21/2018 HISTORY: HTN COMPARISON: Comparison chest dated 10/06/2026 FINDINGS: LUNGS: Mild bibasilar atelectasis right greater than left PLEURA: No significant pleural effusion identified, no pneumothorax apparent. CARDIOVASCULAR: Mild moderate aortic atherosclerotic calcification present. Heart size upper limits of normal. No pulmonary vascular congestion. OSSEOUS STRUCTURES: No significant abnormalities. VISUALIZED UPPER ABDOMEN: Normal. OTHER FINDINGS: None. IMPRESSION: Mild bibasilar atelectasis right greater than left.
[2018-05-21 17:43] LABS: BASO # 0.03 K/mm3 (0.0-2.0); BASO % 0.5 % (0.0-3.0); EOS # 0.3 (0.0-0.7); EOS % 5.2 % (1.5-5.0); HEMOGLOBIN 11.5 g/dL (12.0-16.0); LYMPH # 1.8 (1.2-3.4); LYMPH % 30.8 % (22.0-35.0); MEAN CORPUSCULAR HEMOGLOBIN 28.2 pg (25.0-35.0); MEAN CORPUSCULAR HGB CONC 33.1 g/dl (31.0-37.0); MONO # 0.5 (0.1-0.6); MONO % 8.1 % (1.0-6.0); RBC 4.08 10^6/uL (3.5-6.1); WHITE BLOOD COUNT 5.8 10^3/uL (4.5-11.0)
[2018-05-21 17:47] LABS: INR 1.15; PARTIAL THROMBOPLASTIN TIME 33.1 Seconds (26.9-38.3); PROTHROMBIN TIME 12.8 SECONDS (9.4-12.5)
[2018-05-21 18:26] VITALS: O2SAT 98
[2018-05-21 18:51] LABS: ALB/GLOB RATIO 1.3 (1.1-1.8); ALBUMIN 4.6 g/dL (3.0-4.8); ALT/SGPT 24 U/L (7-56); AST/SGOT 26 U/L (14-36); BLOOD UREA NITROGEN 40 mg/dL (7-21); CALCIUM 9.8 mg/dL (8.4-10.5); GFR NON-AFRICAN AMERICAN 24
[2018-05-21 19:02] LABS: TROPONIN I < 0.01 ng/mL
--- NOTE | 2018-05-21 20:10 | CARD ---
APPROVED REPORT Date of service: 05/21/2018 EKG Measurement Heart [id number] <Conclusion> Normal sinus rhythm with sinus arrhythmia Normal ECG
[2018-05-21 20:16] VITALS: BP 166/64; PULSE 82
== END 2018-05-21 20:00 | disposition home or self-care (01) ==
LOC: ED 16:43
DX: I12.9 Hypertensive chronic kidney disease with stage 1 through stage 4 chronic kidney disease, or unspecified chronic kidney disease (principal); N18.9 Chronic kidney disease, unspecified; E11.9 Type 2 diabetes mellitus without complications; Z90.5 Acquired absence of kidney

== ENCOUNTER 2018-06-18 12:59 | Emergency (ER) | payer OTHER ==
[2018-06-18 13:00] VITALS: BMI 30.7
--- NOTE | 2018-06-18 13:25 | ED PDOC ---
Arrival/HPI - General Chief Complaint: High Blood Pressure Time Seen by Provider: 06/18/18 13:05 Historian: Patient - History of Present Illness Narrative History of Present Illness (Text): 06/18/18 13:22 A 77 year old female, whose past medical history includes hypertension and diabetes, presents to the emergency department with a complaint of high blood pressure. Patient reports that her headache is due to high blood pressure. She notes that she was seen a few weeks ago in the emergency department for hypertension. Patient states that she is complaint with her medication. She reports that her headache was an 8/10, earlier today, but currently feels that it has improved. Patient denies fevers, chills, dizziness, chest pain, shortness of breath, dyspnea on exertion, cough, abdominal pain, nausea, vomiting, diarrhea, back pain, neck pain, urinary/bowel changes, or any other complaint. PMD: Dr. Rivera Paintings Restorer: Dr. Connell Time/Duration: Other (Today) Symptom Onset: Sudden Symptom Course: Improving Activities at Onset: Rest, Light Context: Home Past Medical History - Provider Review Nursing Documentation Reviewed: Yes - Infectious Disease Hx of Infectious Diseases: None - Tetanus Immunization Tetanus Immunization: Unknown - Cardiac Hx Pacemaker: No - Pulmonary Other/Comment: SOB - Neurological Hx Paralysis: No - HEENT Hx HEENT Disorder: Yes Hx Cataracts: Yes (Both Eyes) - Endocrine/Metabolic Hx Diabetes Mellitus Type 2: Yes - Hematological/Oncological Hx Blood Transfusions: No Hx Blood Transfusion Reaction: No - Musculoskeletal/Rheumatological Hx Musculoskeletal Disorders: Yes - Gastrointestinal Hx Gastroesophageal Reflux: Yes Hx Gastrointestinal Ulcer: Yes - Genitourinary/Gynecological Hx Reproductive Disorders: No - Psychiatric Hx Emotional Abuse: No Hx Physical Abuse: No Hx Substance Use: No - Surgical History Hx Cardiac Catheterization: Yes Hx Coronary Stent: Yes Hx Open Heart Surgery: Yes - Anesthesia Hx Anesthesia: Yes Hx Anesthesia Reactions: No Hx Malignant Hyperthermia: No - Suicidal Assessment Feels Threatened In Home Enviroment: No Family/Social History - Physician Review Nursing Documentation Reviewed: Yes Family/Social History: No Known Family HX Smoking Status: Never Smoked Hx Alcohol Use: No Hx Substance Use: No Hx Substance Use Treatment: No Allergies/Home Meds Allergies/Adverse Reactions: Allergies No Known Allergies Allergy (Verified 05/21/18 17:05) Home Medications: Home Meds Medication Instructions Recorded Confirmed Clonidine Hydrochloride [Clonidine 0.1 mg PO BID 09/23/11 02/05/15 HCl] Insulin Aspart, Recombinant 5 units SC ACL 09/23/11 02/05/15 [Novolog] Insulin Aspart, Recombinant 9 units SC ACD 09/23/11 02/05/15 [Novolog] Insulin Aspart, Recombinant 11 units SC ACB 09/23/11 02/05/15 [Novolog] Insulin Glargine,Hum.rec.anlog 30 units SC HS 09/23/11 02/05/15 [Lantus] Zolpidem Tartrate [Ambien] 5 mg PO HS PRN 09/23/11 02/05/15 Atorvastatin Calcium 40 mg PO HS 11/20/11 02/05/15 Amlodipine Besylate 10 mg PO DAILY 02/01/12 02/05/15 Aspirin [Ecotrin] 81 mg PO DAILY 02/01/12 02/05/15 Clopidogrel Hydrogen Sulfate 75 mg PO DAILY 02/01/12 02/05/15 [Plavix] cloNIDine 0.3 mg/24 hr 1 patch TD WM 02/01/12 02/05/15 [catapres-TTS3 0.3 mg/24 hr] Polyethylene Glycol 3350 17 gm PO DAILY 02/21/12 02/05/15 Pantoprazole Sodium [Protonix] 40 mg PO DAILY 03/25/12 02/05/15 Docusate [Colace] 100 mg PO TID 01/17/15 02/05/15 Fexofenadine HCl [Delmi NF] 180 mg PO DAILY 01/17/15 02/05/15 Furosemide [Lasix] 40 mg PO DAILY 01/17/15 02/05/15 Lisinopril 40 mg PO DAILY 01/17/15 02/05/15 Nitroglycerin 0.2 mg/hr [Nitro-Dur 1 patch TD DAILY 01/17/15 02/05/15 0.2 mg/hr Patch] hydrALAZINE [Apresoline] 50 mg PO TID 01/17/15 02/05/15 Review of Systems - Physician Review All systems were reviewed & negative as marked: Yes - Review of Systems Constitutional: absent: Fevers Respiratory: absent: SOB, Cough Cardiovascular: absent: Chest Pain, HONG Gastrointestinal: absent: Abdominal Pain, Stool Changes, Diarrhea, Nausea, Vomiting Genitourinary Female: absent: Urine Output Changes Musculoskeletal: absent: Back Pain, Neck Pain Neurological: Headache. absent: Dizziness Physical Exam Vital Signs Reviewed: Yes Temperature: Afebrile Blood Pressure: Hypertensive Pulse: Regular Respiratory Rate: Normal Appearance: Positive for: Well-Appearing, Non-Toxic, Comfortable Pain Distress: None Mental Status: Positive for: Alert and Oriented X 3 - Systems Exam Head: Present: Atraumatic, Normocephalic Pupils: Present: PERRL Extroacular Muscles: Present: EOMI Conjunctiva: Present: Normal Mouth: Present: Moist Mucous Membranes Neck: Present: Normal Range of Motion Respiratory/Chest: Present: Clear to Auscultation, Good Air Exchange. No: Respiratory Distress, Accessory Muscle Use Cardiovascular: Present: Regular Rate and Rhythm, Normal S1, S2. No: Murmurs Abdomen: No: Tenderness, Distention, Peritoneal Signs Back: Present: Normal Inspection Upper Extremity: Present: Normal Inspection. No: Cyanosis, Edema Lower Extremity: Present: Normal Inspection. No: Edema Neurological: Present: GCS=15, CN II-XII Intact, Speech Normal, Motor Func Grossly Intact, Normal Sensory Function, Normal Cerebellar Funct, Gait Normal, Normal 2Pt Descrimination Skin: Present: Warm, Dry, Normal Color. No: Rashes Psychiatric: Present: Alert, Oriented x 3, Normal Insight, Normal Concentration, Normal Affect, Normal Mood Medical Decision Making ED Course and Treatment: 06/18/18 13:26 Impression: A 77 year old female presents to the emergency department with a complaint of high blood pressure and headache. Differential Diagnosis included but are not limited to: Plan: -- Reassess and disposition Prior Visits: Notes and results from previous visits were reviewed. Patient was seen in the emergency department on 05/21/2018 for a complaint of high blood pressure. Progress Notes: 06/18/18 13:59: Case discussed in detail with Dr. Irby. Discussed medications with him. No change in blood pressure medications at this time. Patient is asymptomatic and no longer having headache. Neuro exam normal on reevaluation. I have discussed the plan with the patient, who expresses understanding. Patient in agreement with plan to be discharged home. Patient is stable for discharge. Patient was instructed to follow up with Dr. Irby or return if symptoms worsen or new concerning symptoms arise. - Scribe Statement The provider has reviewed the documentation as recorded by the Scribe Marleny Rivera Provider Krupa Attestation: All medical record entries made by the Krupa were at my direction and personally dictated by me. I have reviewed the chart and agree that the record accurately reflects my personal performance of the history, physical exam, medical decision making, and the department course for this patient. I have also personally directed, reviewed, and agree with the discharge instructions and disposition. Disposition/Present on Arrival - Present on Arrival Any Indicators Present on Arrival: Yes History of DVT/PE: No History of Uncontrolled Diabetes: Yes Urinary Catheter: No History of Decub. Ulcer: No History Surgical Site Infection Following: None - Disposition Have Diagnosis and Disposition been Completed?: Yes Diagnosis: Hypertension Disposition: HOME/ ROUTINE Disposition Time: 14:24 Patient Plan: Discharge Condition: IMPROVED Discharge Instructions (ExitCare): High Blood Pressure in Adults Additional Instructions: RANDY DIOP, thank you for letting us take care of you today. Your provider was Dillan Howard DO and you were treated for HIGH BLOOD PRESSURE. The emergency medical care you received today was directed at your acute symptoms. If you were prescribed any medication, please fill it and take as directed. It may take several days for your symptoms to resolve. Return to the Emergency Department if your symptoms worsen, do not improve, or if you have any other problems. Please contact your doctor or call one of the physicians/clinics you have been referred to that are listed on the Patient Visit Information form that is included in your discharge packet. Bring any paperwork you were given at discharge with you along with any medications you are taking to your follow up visit. Our treatment cannot replace ongoing medical care by a primary care provider outside of the emergency department. Thank you for allowing the [facility] team to be part of your care today. If you had an X-Ray or CT scan: A Radiologist will review the ED reading if any change in treatment is needed we will contact you. If you had a blood, urine, or wound culture: It will take several days for the results, if any change in treatment is needed we will contact you. If you had an STI test: It will take 48 hours for the results. Please call after 1 week if you have not heard back. Referrals: Mahamed Rivera JD, MD [Family Provider] - Follow up with primary Forms: [employer] (Tajik)
[2018-06-18 13:38] VITALS: RESP 18; TEMP 97.9
[2018-06-18 14:03] VITALS: BP 153/71; PULSE 85; O2SAT 99
== END 2018-06-18 14:30 | disposition home or self-care (01) ==
LOC: ED 12:59
DX: I10 Essential (primary) hypertension (principal)

== ENCOUNTER 2018-08-02 00:59 | Emergency (ER) | payer OTHER ==
[2018-08-02 01:08] VITALS: BMI 28.3
[2018-08-02 01:09] VITALS: TEMP 98.2
--- NOTE | 2018-08-02 01:28 | ED PDOC ---
Arrival/HPI - General Chief Complaint: Chest Pain Time Seen by Provider: 08/02/18 01:03 Historian: Patient - History of Present Illness Narrative History of Present Illness (Text): 08/02/18 01:10 Jessica Ibanez is a 77 year old female, whose past medical history includes diabetes, hypertension, chronic kidney disease, and left nephrectomy, who presents to the emergency department complaining of chest tightness for the past few days. Patient also notes her blood pressure and blood sugar have been elevated. Patient denies any fever, chills, shortness of breath, abdominal pain, nausea, vomiting, diarrhea, urinary symptoms, back pain, neck pain, headache, dizziness, or any other complaints. Symptom Onset: Gradual Symptom Course: Unchanged Activities at Onset: Light Context: Home Past Medical History - Provider Review Nursing Documentation Reviewed: Yes - Infectious Disease Hx of Infectious Diseases: None - Tetanus Immunization Tetanus Immunization: Unknown - Cardiac Hx Cardiac Disorders: Yes Hx PR: Yes (stents) Hx Hypertension: Yes Hx Pacemaker: No - Pulmonary Hx Respiratory Disorders: No Other/Comment: SOB - Neurological Hx Paralysis: No - HEENT Hx HEENT Disorder: Yes Hx Cataracts: Yes (Both Eyes) - Endocrine/Metabolic Hx Endocrine Disorders: Yes Hx Diabetes Mellitus Type 2: Yes - Hematological/Oncological Hx Blood Transfusions: No Hx Blood Transfusion Reaction: No - Musculoskeletal/Rheumatological Hx Musculoskeletal Disorders: Yes - Gastrointestinal Hx Gastrointestinal Disorders: Yes Hx Gastroesophageal Reflux: Yes Hx Gastrointestinal Ulcer: Yes - Genitourinary/Gynecological Hx Reproductive Disorders: No - Psychiatric Hx Emotional Abuse: No Hx Physical Abuse: No Hx Substance Use: No - Surgical History Hx Cardiac Catheterization: Yes Hx Coronary Stent: Yes Hx Open Heart Surgery: Yes - Anesthesia Hx Anesthesia: Yes Hx Anesthesia Reactions: No Hx Malignant Hyperthermia: No - Suicidal Assessment Feels Threatened In Home Enviroment: No Family/Social History - Physician Review Nursing Documentation Reviewed: Yes Family/Social History: No Known Family HX Smoking Status: Never Smoked Hx Alcohol Use: No Hx Substance Use: No Hx Substance Use Treatment: No Allergies/Home Meds Allergies/Adverse Reactions: Allergies No Known Allergies Allergy (Verified 08/02/18 01:08) Home Medications: Home Meds Medication Instructions Recorded Confirmed Clonidine Hydrochloride [Clonidine 0.1 mg PO BID 09/23/11 02/05/15 HCl] Insulin Aspart, Recombinant 5 units SC ACL 09/23/11 02/05/15 [Novolog] Insulin Aspart, Recombinant 9 units SC ACD 09/23/11 02/05/15 [Novolog] Insulin Aspart, Recombinant 11 units SC ACB 09/23/11 02/05/15 [Novolog] Insulin Glargine,Hum.rec.anlog 30 units SC HS 09/23/11 02/05/15 [Lantus] Zolpidem Tartrate [Ambien] 5 mg PO HS PRN 09/23/11 02/05/15 Atorvastatin Calcium 40 mg PO HS 11/20/11 02/05/15 Amlodipine Besylate 10 mg PO DAILY 02/01/12 02/05/15 Aspirin [Ecotrin] 81 mg PO DAILY 02/01/12 02/05/15 Clopidogrel Hydrogen Sulfate 75 mg PO DAILY 02/01/12 02/05/15 [Plavix] cloNIDine 0.3 mg/24 hr 1 patch TD WM 02/01/12 02/05/15 [catapres-TTS3 0.3 mg/24 hr] Polyethylene Glycol 3350 17 gm PO DAILY 02/21/12 02/05/15 Pantoprazole Sodium [Protonix] 40 mg PO DAILY 03/25/12 02/05/15 Docusate [Colace] 100 mg PO TID 01/17/15 02/05/15 Fexofenadine HCl [Delmi NF] 180 mg PO DAILY 01/17/15 02/05/15 Furosemide [Lasix] 40 mg PO DAILY 01/17/15 02/05/15 Lisinopril 40 mg PO DAILY 01/17/15 02/05/15 Nitroglycerin 0.2 mg/hr [Nitro-Dur 1 patch TD DAILY 01/17/15 02/05/15 0.2 mg/hr Patch] hydrALAZINE [Apresoline] 50 mg PO TID 01/17/15 02/05/15 Review of Systems - Review of Systems Constitutional: Normal Eyes: Normal ENT: Normal Respiratory: Normal Cardiovascular: Chest Pain Gastrointestinal: Normal Genitourinary Female: Normal Musculoskeletal: Normal Skin: Normal Neurological: Normal Endocrine: Normal Hemo/Lymphatic: Normal Psychiatric: Normal Physical Exam Vital Signs Reviewed: Yes Vital Signs Temp Pulse Resp BP Pulse Ox 08/02/18 01:08 98.2 F 92 H 22 194/71 H 100 Temperature: Afebrile Blood Pressure: Hypertensive Pulse: Regular Respiratory Rate: Normal Appearance: Positive for: Well-Appearing, Non-Toxic, Comfortable Pain Distress: None Mental Status: Positive for: Alert and Oriented X 3 Finger Stick Blood Glucose: 307 - Systems Exam Head: Present: Atraumatic, Normocephalic Pupils: Present: PERRL Extroacular Muscles: Present: EOMI Conjunctiva: Present: Normal Mouth: Present: Moist Mucous Membranes Neck: Present: Normal Range of Motion Respiratory/Chest: Present: Clear to Auscultation, Good Air Exchange. No: Respiratory Distress, Accessory Muscle Use Cardiovascular: Present: Regular Rate and Rhythm, Normal S1, S2. No: Murmurs Abdomen: No: Tenderness, Distention, Peritoneal Signs Back: Present: Normal Inspection Upper Extremity: Present: Normal Inspection. No: Cyanosis, Edema Lower Extremity: Present: Normal Inspection. No: Edema Neurological: Present: GCS=15, CN II-XII Intact, Speech Normal Skin: Present: Warm, Dry, Normal Color. No: Rashes Psychiatric: Present: Alert, Oriented x 3, Normal Insight, Normal Concentration Medical Decision Making ED Course and Treatment: 08/02/18 01:10 Impression: 77 year old female complaining of chest pain, high blood pressure, and elevated blood sugar. Plan: -- EKG -- CXR -- Labs, cardiac enzymes -- Urinalysis -- Reassess and disposition Prior Visits: Notes and results from previous visits were reviewed. Progress Notes: - RAD Interpretation Radiology Orders: 08/02/18 01:12 CHEST PORTABLE [RAD] Stat - Scribe Statement The provider has reviewed the documentation as recorded by the Krupa Cruz Provider Scribe Attestation: All medical record entries made by the Scribe were at my direction and personally dictated by me. I have reviewed the chart and agree that the record accurately reflects my personal performance of the history, physical exam, medical decision making, and the department course for this patient. I have also personally directed, reviewed, and agree with the discharge instructions and disposition. Disposition/Present on Arrival - Present on Arrival Any Indicators Present on Arrival: No History of DVT/PE: No History of Uncontrolled Diabetes: Yes Urinary Catheter: No History of Decub. Ulcer: No History Surgical Site Infection Following: None - Disposition Have Diagnosis and Disposition been Completed?: Yes Diagnosis: Chest pain, Hypertension Disposition: HOME/ ROUTINE Disposition Time: 03:00 Condition: GOOD Discharge Instructions (ExitCare): High Blood Pressure in Adults, Chest Pain That Is Not Caused by the Heart (DC), Chest Pain (DC), Chest Pain (ED) Forms: [employer] (Korean)
[2018-08-02 02:10] VITALS: BP 145/63; PULSE 78; RESP 16; O2SAT 99
[2018-08-02 02:22] LABS: BASO # 0.03 K/mm3 (0.0-2.0); BASO % 0.5 % (0.0-3.0); EOS # 0.2 (0.0-0.7); EOS % 3.8 % (1.5-5.0); HEMOGLOBIN 11.2 g/dL (12.0-16.0); LYMPH # 1.6 (1.2-3.4); MEAN CELL VOLUME 84.3 fl (80.0-105.0); MEAN CORPUSCULAR HEMOGLOBIN 27.9 pg (25.0-35.0); MEAN PLATELET VOLUME 9.7 fl (7.0-11.0); MONO # 0.6 (0.1-0.6); MONO % 9.6 % (1.0-6.0); RBC 4.02 10^6/uL (3.5-6.1); RED CELL DISTRIBUTION WIDTH 14.5 % (11.5-14.5); WHITE BLOOD COUNT 6.1 10^3/uL (4.5-11.0)
[2018-08-02 02:26] LABS: ALB/GLOB RATIO 1.2 (1.1-1.8); ALBUMIN 4.2 g/dL (3.0-4.8); CALCIUM 9.2 mg/dL (8.4-10.5)
[2018-08-02 02:37] LABS: TROPONIN I 0.01 ng/mL
[2018-08-02 02:39] LABS: URINE APPEARANCE CLEAR (CLEAR); URINE BILIRUBIN NEGATIVE (NEGATIVE); URINE BLOOD NEGATIVE (NEGATIVE); URINE COLOR YELLOW (YELLOW); URINE GLUCOSE (UA) 500 mg/dL (NEGATIVE); URINE LEUKOCYTE ESTERASE NEGATIVE Leu/uL (NEGATIVE); URINE PROTEIN 100 mg/dL (<30 mg/dL); URINE UROBILINOGEN 0.2 E.U./dL (<1 E.U./dL)
[2018-08-02 03:13] LABS: URINE BACTERIA OCC /hpf; URINE EPITHELIAL CELLS 0 - 2 /hpf (0-5); URINE RBC 0 - 2 /hpf (0-2)
--- NOTE | 2018-08-02 09:26 | CARD ---
APPROVED REPORT Date of service: 08/02/2018 EKG Measurement Heart [id number] <Conclusion> Normal sinus rhythm Normal ECG
--- NOTE | 2018-08-02 09:32 | RAD ---
Date of service: 08/02/2018 HISTORY: cp COMPARISON: 05/21/2018 TECHNIQUE: 1 view obtained. FINDINGS: LUNGS: No active pulmonary disease. PLEURA: No significant pleural effusion identified, no pneumothorax apparent. CARDIOVASCULAR: Aortic calcification Normal cardiac size. No pulmonary vascular congestion. OSSEOUS STRUCTURES: No significant abnormalities. VISUALIZED UPPER ABDOMEN: Normal. OTHER FINDINGS: None. IMPRESSION: No active disease.
== END 2018-08-02 03:06 | disposition home or self-care (01) ==
LOC: ED 00:59
DX: I12.9 Hypertensive chronic kidney disease with stage 1 through stage 4 chronic kidney disease, or unspecified chronic kidney disease (principal); R07.9 Chest pain, unspecified; I25.2 Old myocardial infarction; E11.22 Type 2 diabetes mellitus with diabetic chronic kidney disease; N18.9 Chronic kidney disease, unspecified; Z95.1 Presence of aortocoronary bypass graft; Z95.5 Presence of coronary angioplasty implant and graft; Z90.5 Acquired absence of kidney